=== PATIENT | female | born 1975 | race Caucasian/White ===

== ENCOUNTER 2018-08-26 05:31 | Inpatient (IN) | payer OTHER ==
[2018-08-26] MEDS ORDERED: EPHEDrine SULFATE 50 MG/5 ML SYG (07:00)
[2018-08-26] MEDS ORDERED: MIDAZOLAM 1 MG/ML 2 ML INJ (07:19)
[2018-08-26] MEDS ORDERED: morphine SULFATE/PF (10 MG/10 ML) INJ (07:20)
[2018-08-26] MEDS ORDERED: METOCLOPRAMIDE 10 MG INJ (07:20)
[2018-08-26] MEDS ORDERED: DIPHENHYDRAMINE 50 MG INJ IV ×2 (07:30→12:00)
[2018-08-26] MEDS ORDERED: HYDROmorphONE 1 MG/5 ML IV SYRINGE IV ×2 (07:30)
[2018-08-26] MEDS ORDERED: ETOMIDATE 20 MG INJ (07:35)
[2018-08-26] MEDS ORDERED: CEFAZOLIN 1 GM INJ (07:46)
[2018-08-26] MEDS ORDERED: FENTAnyl 50 MCG/ML VIAL (07:46)
[2018-08-26] MEDS ORDERED: ONDANSETRON 4 MG INJ (07:47)
[2018-08-26] MEDS ORDERED: KETOROLAC 30 MG INJ (09:47)
[2018-08-26] MEDS: MEPERIDINE 25 MG INJ IV (09:57)
[2018-08-26] MEDS: KETOROLAC 30 MG INJ IV ×2 (09:57→17:35)
[2018-08-26] MEDS: ONDANSETRON 4 MG INJ IV ×3 (09:58→17:34)
[2018-08-26] MEDS: HYDROmorphONE 1 MG/5 ML IV SYRINGE IV (09:58)
[2018-08-26 10:11] LABS: ADD UMIC YES; UR AMORPHOUS CRYSTAL FEW /HPF (NONE SEEN); UR ASCORBIC ACID NEGATIVE (NEGATIVE); UR BACTERIA FEW /HPF (NONE SEEN); UR BILIRUBIN (Dip) NEGATIVE (NEGATIVE); UR BLOOD (Dip) 1+ mg/dL (NEGATIVE); UR CLARITY SLIGHTLY CLOUDY (CLEAR); UR COLOR YELLOW (YELLOW); UR GLUCOSE (Dip) NEGATIVE (NEGATIVE); UR KETONES (Dip) NEGATIVE (NEGATIVE); UR LEUKOCYTE ESTERASE (Dip) TRACE Leu/ul (NEGATIVE); UR NITRITE (Dip) NEGATIVE (NEGATIVE); UR RBC 5 /HPF (0-5); UR SPECIFIC GRAVITY (Dip) 1.016 (1.003-1.030); UR SQUAMOUS EPITHELIAL CELL FEW /HPF (FEW); UR TOTAL PROTEIN (Dip) NEGATIVE (NEGATIVE); UR UROBILINOGEN (Dip) NEGATIVE (NEGATIVE); UR WBC 9 /HPF (0-5)
[2018-08-26] MEDS: HYDROmorphONE 0.5 MG/0.5 ML SYG IV (11:56)
[2018-08-26] MEDS ORDERED: NALOXONE (0.4 MG/ML) INJ IV (12:00)
[2018-08-26] MEDS ORDERED: HYDROmorphONE 0.5 MG/0.5 ML SYG IV (12:00)
[2018-08-26] MEDS ORDERED: HYDROmorphONE 1 MG/ML SYG IV (12:00)
[2018-08-26] MEDS ORDERED: ONDANSETRON 4 MG INJ IV (12:00)
[2018-08-26] MEDS ORDERED: GLUCOSE GEL 15 GRAM TUBE PO ×2 (20:30)
[2018-08-26] MEDS ORDERED: GLUCAGON 1 MG INJ IM (20:30)
[2018-08-26] MEDS ORDERED: GLUCOSE GEL 15 GRAM TUBE BUCCAL (20:30)
[2018-08-26] MEDS ORDERED: DEXTROSE 50% 50 ML SYRINGE IV ×2 (20:30)
[2018-08-26] MEDS: INSULIN ASPART [NOVOLOG] 3 ML PEN SC (20:31)
[2018-08-26] MEDS: LACTATED RINGER'S 1,000 ML IV (21:00)
[2018-08-27] MEDS: INSULIN ASPART [NOVOLOG] 3 ML PEN SC ×2 (00:28→06:16)
[2018-08-27] MEDS: LACTATED RINGER'S 1,000 ML IV ×2 (01:11→13:00)
[2018-08-27] MEDS ORDERED: ACCU-CHEK XX (02:00)
[2018-08-27 05:07] LABS: ADD MAN DIFF? NO
[2018-08-27 05:12] LABS: WHITE BLOOD COUNT 9.2 10^3/ul (4.8-10.8)
[2018-08-27 05:12] LABS: BASOPHILS % 0.3 % (0.0-2.0); EOSINOPHILS # 0.1 10^3/ul (0.0-0.5); EOSINOPHILS % 0.5 % (0.0-7.0); HEMATOCRIT 29.1 % (37.0-47.0); HEMOGLOBIN 9.3 g/dl (12.0-16.0); LYMPHOCYTES # 2.1 10^3/ul (0.8-2.9); LYMPHOCYTES % 22.8 % (15.0-51.0); MEAN CORPUSCULAR HEMOGLOBIN 28.8 pg (29.0-33.0); MEAN CORPUSCULAR VOLUME 90.1 fl (82.0-101.0); MEAN PLATELET VOLUME 10.1 fl (7.4-10.4); MONOCYTE # 0.6 10^3/ul (0.3-0.9); MONOCYTES % 6.5 % (0.0-11.0); NEUTROPHIL # 6.4 10^3/ul (1.6-7.5); NEUTROPHILS % 69.5 % (39.0-77.0); PLATELET COUNT 241 10^3/UL (140-415); RED BLOOD COUNT 3.23 10^6/ul (4.20-5.40); RED CELL DISTRIBUTION WIDTH 13.4 % (11.5-14.5)
[2018-08-27 05:36] LABS: ALANINE AMINOTRANSFERASE 28 IU/L (13-69); ALBUMIN 3.1 g/dl (3.3-4.9); ALBUMIN/GLOBULIN RATIO 1.19; ALKALINE PHOSPHATASE 76 IU/L (42-121); ANION GAP 4 (5-13); ASPARTATE AMINO TRANSFERASE 20 IU/L (15-46); BILIRUBIN,INDIRECT 0.3 mg/dl (0-1.1); BILIRUBIN,TOTAL 0.3 mg/dl (0.2-1.3); BLOOD UREA NITROGEN 10 mg/dl (7-20); CALCIUM 8.2 mg/dl (8.4-10.2); CARBON DIOXIDE 28 mmol/L (21-31); CHLORIDE 104 mmol/L (97-110); CREATININE 0.48 mg/dl (0.44-1.00); Estimated GFR > 60 mL/min (>60); GLUCOSE 159 mg/dl (70-220); POTASSIUM 3.9 mmol/L (3.5-5.1); SODIUM 136 mmol/L (135-144); TOTAL PROTEIN 5.7 g/dl (6.1-8.1)
[2018-08-27] MEDS: MAGNESIUM HYDROXIDE 30ML CUP PO ×2 (06:17→15:59)
[2018-08-27] MEDS: BISACODYL 10 MG SUPP PR ×2 (06:17→15:59)
[2018-08-27] MEDS: KETOROLAC 30 MG INJ IV ×2 (06:18→11:57)
[2018-08-27] MEDS ORDERED: INSULIN ASPART [NOVOLOG] 3 ML PEN SC (17:55)
[2018-08-27] MEDS: IBUPROFEN 800 MG TAB PO (17:56)
[2018-08-27] MEDS: Insulin NOVOLOG SS MILD Algorithm (SS with meals and bedtime) SC ×2 (18:00→20:30)
[2018-08-28] MEDS: IBUPROFEN 800 MG TAB PO ×2 (02:06→08:46)
[2018-08-28] MEDS: ACCUCHECK AT 2AM (Patients on SS coverage) XX (02:07)
[2018-08-28 05:40] LABS: ADD MAN DIFF? NO
[2018-08-28 05:48] LABS: BASOPHILS % 0.5 % (0.0-2.0); EOSINOPHILS # 0.2 10^3/ul (0.0-0.5); EOSINOPHILS % 2.2 % (0.0-7.0); HEMATOCRIT 28.5 % (37.0-47.0); HEMOGLOBIN 9.3 g/dl (12.0-16.0); LYMPHOCYTES # 3.2 10^3/ul (0.8-2.9); LYMPHOCYTES % 36.4 % (15.0-51.0); MEAN CORPUSCULAR HEMOGLOBIN 29.1 pg (29.0-33.0); MEAN CORPUSCULAR HGB CONC 32.6 g/dl (32.0-37.0); MEAN CORPUSCULAR VOLUME 89.1 fl (82.0-101.0); MEAN PLATELET VOLUME 10.2 fl (7.4-10.4); MONOCYTE # 0.6 10^3/ul (0.3-0.9); MONOCYTES % 6.7 % (0.0-11.0); NEUTROPHIL # 4.8 10^3/ul (1.6-7.5); NEUTROPHILS % 53.7 % (39.0-77.0); PLATELET COUNT 238 10^3/UL (140-415)
[2018-08-28 05:48] LABS: WHITE BLOOD COUNT 8.8 10^3/ul (4.8-10.8)
[2018-08-28 06:12] LABS: ALANINE AMINOTRANSFERASE 23 IU/L (13-69); ALBUMIN 2.8 g/dl (3.3-4.9); ALBUMIN/GLOBULIN RATIO 0.96; ALKALINE PHOSPHATASE 79 IU/L (42-121); ANION GAP 9 (5-13); ASPARTATE AMINO TRANSFERASE 28 IU/L (15-46); BILIRUBIN,INDIRECT 0.1 mg/dl (0-1.1); BILIRUBIN,TOTAL 0.1 mg/dl (0.2-1.3); BLOOD UREA NITROGEN 9 mg/dl (7-20); CALCIUM 8.1 mg/dl (8.4-10.2); CARBON DIOXIDE 28 mmol/L (21-31); CHLORIDE 105 mmol/L (97-110); CREATININE 0.49 mg/dl (0.44-1.00); Estimated GFR > 60 mL/min (>60); GLUCOSE 150 mg/dl (70-220); POTASSIUM 3.5 mmol/L (3.5-5.1); SODIUM 142 mmol/L (135-144); TOTAL PROTEIN 5.7 g/dl (6.1-8.1)
[2018-08-28] MEDS: Insulin NOVOLOG SS MILD Algorithm (SS with meals and bedtime) SC ×2 (07:20→12:42)
[2018-08-28] MEDS ORDERED: HYDROCODONE/APAP (5/325) TAB PO ×2 (08:00)
[2018-08-28] MEDS: traMADol 50 MG TAB PO (10:44)
== END 2018-08-28 13:55 | disposition home or self-care (01) | DRG 743 ==
LOC: REC 05:31 → MS1 10:29
PROVIDERS: Obstetrics & Gynecology
PROC: 0UT90ZL Resection of Uterus, Supracervical, Open Approach (ICD-10-PCS; principal; 2018-08-26 07:17)
PROC: 0UT70ZZ Resection of Bilateral Fallopian Tubes, Open Approach (ICD-10-PCS; 2018-08-26 07:17)
PROC: 0UT20ZZ Resection of Bilateral Ovaries, Open Approach (ICD-10-PCS; 2018-08-26 07:17)
PROC: 0DNU0ZZ Release Omentum, Open Approach (ICD-10-PCS; 2018-08-26 07:17)
PROC: 0UN20ZZ Release Bilateral Ovaries, Open Approach (ICD-10-PCS; 2018-08-26 07:17)
PROC: 0UN70ZZ Release Bilateral Fallopian Tubes, Open Approach (ICD-10-PCS; 2018-08-26 07:17)
DX: N80.8 Other endometriosis (principal); N73.6 Female pelvic peritoneal adhesions (postinfective); N92.0 Excessive and frequent menstruation with regular cycle; G89.29 Other chronic pain; N81.89 Other female genital prolapse
CPT/HCPCS: 80053; 81001; 82962; 85025; 87086; 88305